=== PATIENT | male | born 1970 | race Caucasian/White ===

== ENCOUNTER 2018-10-01 12:14 | Day surgery (SDC) | payer BC ==
--- NOTE | 2018-10-01 11:43 | POSTOPPROG ---
Post Op Note Date of Operation: 10/01/18 Surgeon: José Abel Electronic Co[employer] Supervisor: Marion Davila PA-C Anesthesia: GET(General Endotracheal) Pre-op Diagnosis: Recurrent incisional hernia Post-op Diagnosis: Same Procedure: Recurrent incisional hernia repair with component separation/TEP block Findings: 10cm defect, poorly adhered mesh eventrating through defect Inf/Abcess present in the surg proc area at time of surgery?: No EBL: Minimal Specimen(s): none
--- NOTE | 2018-10-01 11:43 | PDHPUP ---
History & Physical Update H&P update statement: This history and physical update is based on an assessment of the patient which was completed after admission or registration (within 24 hours), but prior to the surgery/procedure. H&P update: H&P reviewed & patient examined, no change in patient's condition since H&P completed
[2018-10-01] MEDS ORDERED: BUPIVACAINE/EPI 0.5% 30 ML SDV ONE (12:30)
[2018-10-01] MEDS ORDERED: LIDOCAINE 1% 300 MG/30 ML SDV ONE (12:30)
[2018-10-01] MEDS ORDERED: LR 1,000 ML IV ONE (12:30)
[2018-10-01] MEDS ORDERED: fentaNYL 100 MCG/2 ML INJ ONE (13:43)
[2018-10-01] MEDS ORDERED: PROPOFOL 200 MG/20 ML VIAL ONE (13:43)
[2018-10-01] MEDS ORDERED: MIDAZOLAM 2 MG/2 ML VIAL ONE (13:44)
[2018-10-01] MEDS ORDERED: DEXAMETHASONE 4 MG/ML VIAL ONE (13:44)
[2018-10-01] MEDS ORDERED: KETOROLAC 30 MG/1 ML SDV ONE (13:44)
[2018-10-01] MEDS ORDERED: LIDOCAINE 2% 5 ML SDV ONE (13:44)
[2018-10-01] MEDS ORDERED: ONDANSETRON 4 MG/2 ML VIAL ONE (13:44)
[2018-10-01] MEDS ORDERED: SUCCINYLCHOLINE CHLORIDE 200 MG/10 ML SYR IVP ONE (13:44)
[2018-10-01] MEDS ORDERED: ROCURONIUM 50 MG/5 ML VIAL ONE (13:44)
[2018-10-01] MEDS ORDERED: MIDAZOLAM 2 MG/2 ML VIAL IVP ONE (13:49)
--- NOTE | 2018-10-01 13:49 | PDANEPAE ---
ANE History of Present Illness hernia ANE Past Medical History - Cardiovascular History Hx Hypertension: No Hx Arrhythmias: No Hx Chest Pain: No Hx Coronary Artery / Peripheral Vascular Disease: No Hx CHF / Valvular Disease: No Hx Palpitations: No - Pulmonary History Hx COPD: No Hx Asthma/Reactive Airway Disease: No Hx Recent Upper Respiratory Infection: No Hx Oxygen in Use at Home: No Hx Sleep Apnea: No Sleep Apnea Screening Result - Last Documented: Negative - Neurologic History Hx Cerebrovascular Accident: No Hx Seizures: No Hx Dementia: No - Endocrine History Hx Diabetes: No Hypothyroid: No Hyperthyroid: No Obesity: no - Renal History Hx Renal Disorders: No - Liver History Hx Hepatic Disorders: No - Neurological & Psychiatric Hx Hx Neurological and Psychiatric Disorders: No - Cancer History Hx Cancer: No - Congenital Disorder History Hx Congenital Disorders: No - GI History GERD: no Hx Gastrointestinal Disorders: No - Other Health History Other Health History: none - Chronic Pain History Chronic Pain: No - Surgical History Prior Surgeries: 4 hernia repairs ANE Review of Systems Review of Systems: - Exercise capacity Exercise capacity: >=4 METS METS (RN): 4 METS ANE Patient History - Allergies Allergies/Adverse Reactions: No Known Allergies Allergy (Verified 09/30/18 14:26) - Home Medications Home Medications: NK [No Known Home Meds] 09/30/18 [Last Taken Unknown] - NPO status NPO Status: no food or drink >8 hours NPO Since - Liquids (Date): 10/01/18 NPO Since - Liquids (Time): 10:00 NPO Since - Solids (Date): 09/30/18 NPO Since - Solids (Time): 18:00 - Anes Hx Anes Hx: no prior problems - Smoking Hx Smoking Status: Former smoker - Family Anes Hx Family Hx Anesthesia Complications: none ANE Labs/Vital Signs - Vital Signs Blood Pressure: 140/90 Heart Rate: 89 Respiratory Rate: 16 O2 Sat (%): 96 Height: 177.8 cm Weight: 74.843 kg ANE Physical Exam - Airway Mallampati Score: Class 2 - Pulmonary Pulmonary: no respiratory distress - Cardiovascular Cardiovascular: regular rate and rhythym - ASA Status ASA Status: I ANE Anesthesia Plan Anesthesia Plan: general endotracheal anesthesia
[2018-10-01] MEDS ORDERED: HYDROmorphONE/DILAUDID 2 MG/ML INJ ONE (14:19)
[2018-10-01] MEDS ORDERED: HYDROmorphONE/DILAUDID 2 MG/ML INJ IVP PRN (15:37)
[2018-10-01] MEDS ORDERED: LR 500 ML IV PRN (15:37)
[2018-10-01] MEDS ORDERED: fentaNYL 100 MCG/2 ML INJ IVP PRN (15:37)
[2018-10-01] MEDS ORDERED: ALBUTEROL 3 ML DEYVIAL IH PRN (15:37)
[2018-10-01] MEDS ORDERED: NALOXONE HCL 0.4 MG/ML INJ IVP PRN (15:37)
[2018-10-01] MEDS ORDERED: ONDANSETRON 4 MG/2 ML VIAL IVP PRN (15:37)
[2018-10-01] MEDS ORDERED: SUGAMMADEX SODIUM 200 MG/2 ML VIAL IVP ONE (15:38)
[2018-10-01] MEDS ORDERED: METOPROLOL TARTRATE 5 MG/5 ML INJ ONE (15:47)
--- NOTE | 2018-10-01 15:58 | POSTANESTH ---
Post Anesthetic Evaluation Cardiovascular Status: Normal, Stable Respiratory Status: Normal, Stable Level of Consciousness/Mental Status: Can Participate in Eval Pain Control: Adequate, Prn Tx Ordered Nausea/Vomiting Control: Adequate, Prn Tx Ordered Complications Possibly Related to Anesthesia: None Noted
--- NOTE | 2018-10-01 16:45 | GOP ---
DATE OF OPERATION: 10/01/2018 SURGEON: José Abel MD NEUROSURGEON: José Abel MD. FISH GRADER: Marion Davila PA-C ANESTHESIA: General. ANESTHESIOLOGIST: Dr. Parikh. PREOPERATIVE DIAGNOSIS: Recurrent incisional hernia. POSTOPERATIVE DIAGNOSIS: Recurrent incisional hernia. PROCEDURE PERFORMED: 1. Recurrent incisional herniorrhaphy with retrorectus component separation with 10 x 9 inch Pro Gri p mesh placement and 10 x 15 inch Phasix mesh placement. 2. TEP block. FINDINGS: INDICATIONS: A 47-year-old male, status post 2 prior incisional hernia [place] He underwent a laparoscopic repair here last year with a Parietex mesh placement. He has de veloped a symptomatic recurrence. He is undergoing surgical repair at this time. Risks and benefits were explained of bleeding, infection, recurrence, bowel injury, as well as others. All questions w ere answered. He desires to proceed. expanded duty dental assistant is standard, necessary, and customary for t he safe performance of this procedure. DESCRIPTION OF PROCEDURE: After general anesthesia was induced, the prior midline incision was opene d and extended both proximally and distally. The large even trading meshoma was dissected back towar d healthy-appearing fascial edges. The defect measured approximately 10 cm circumferentially. The l eft lateral aspect of the mesh was completely nonadherent to the abdominal wall. The portions of the right-sided mesh were partially stuck to the abdominal wall. The majority of the mesh was explanted within the hernia sac and taken back to healthy-appearing fascial edges. The portions of the adhere d right-sided mesh were left intact to use for anchoring the posterior layer of the rectus sheath fas antonio after component separation was completed. The omental adhesions were all lysed from the undersid e of the abdominal wall. The posterior layer of the rectus sheath was incised and dissected far late rally. The retrorectus fascia was able to be closed primarily with a running PDS suture incorporatin g the remaining aspects of the right paramedian Parietex mesh. A 10 x 9 inch Pro Upholstery Covers Inspector mesh was inser francisco beneath the rectus musculature with the prong side adherent to the posterior fascia. The mesh rivero d been T'd both proximally and distally, allowed to pass all around the umbilicus, as well as proxima lly toward the intact epigastric fascia. The midline fascia was closed with a running PDS suture inc orporating the mesh into the closure. Excellent coverage was obtained. A TEP block was placed far l aterally on both sides with a 0.5% Marcaine with epinephrine. An additional 10 x 15 cm Phasix patch was additionally placed over the anterior fascia, incorporated at multiple points with Vicryl suture, this being the patient's third recurrence. Satisfactory hemostasis was assured. The subcutaneous d efects were felt to be sufficiently small enough to avoid drain placement directly overlying the subc utaneous mesh. The defect was closed in layers with absorbable sutures followed by Dermabond. The p atient was extubated in the operating room and taken to recovery uneventfully. /[id number]/MODL
[2018-10-01 18:17] VITALS: BP 128/77
== END 2018-10-01 19:07 | disposition home or self-care (01) ==
LOC: FSGY 12:14
PROVIDERS: ATTEND Surgery
PROC: 0WQF0ZZ Repair Abdominal Wall, Open Approach (ICD-10-PCS; principal; 2018-10-01 13:45)
DX: K43.0 Incisional hernia with obstruction, without gangrene (principal)
CPT/HCPCS: C1781; J0330; J1100; J1170; J1885; J2250; J2405; J2704; J3010